=== PATIENT | male | born 1980 | race Caucasian/White ===

== ENCOUNTER 2019-02-14 16:15 | Emergency (ER) | payer MEDICAID ==
[~2019-02-14] VITALS: Ht 180.3 cm; Wt 105.0 kg
[2019-02-14 16:22] VITALS: BP 119/58; PULSE 89; RESP 18; Ht 180.3 cm; Wt 105.0 kg
--- NOTE | 2019-02-14 16:55 | ERD ---
ER Documentation Chief Complaint Chief Complaint L lower leg swelling/cellulitis X 5 months, worse recently HPI Patient 38-year-old male presenting with swelling and discomfort to his right leg. Patient states the symptoms started about 5 months ago and recently got worse over the last week. Patient is an IV drug user who uses daily. Patient denies any fever chills or body ache. Patient denies any past medical history and is not taking any prescription medication. ROS All systems reviewed and are negative except as per history of present illness. Medications Home Meds Active Scripts Sulfamethoxazole/Trimethoprim* (Bactrim Ds* Tablet) 1 Each Tablet, 1 TAB PO BID, #14 TAB Prov:ADRIANA MAC PA-C 02/14/19 Allergies Allergies: Coded Allergies: No Known Allergy (Unverified , 02/14/19) PMhx/Soc Medical and Surgical Hx: pt denies Medical Hx, pt denies Surgical Hx FmHx Family History: diabetes; No coronary disease, No other Physical Exam Vitals Vital Signs Date Temp Pulse Resp B/P (MAP) Pulse Ox O2 O2 Flow FiO2 Time Delivery Rate 02/14/19 96.6 89 18 119/58 100 16:22 (78) Physical Exam GENERAL: The patient is well-appearing, well-nourished, in no acute distress EXTREMITIES: Patient has swelling to left lower leg, patient has good pulse motor sensation in the extremity. Patient has multiple lesions on bilateral arms and legs secondary to IV drug use. Patient has good pulse motor and sensation in both lower and upper extremities There is no peripheral clubbing, cyanosis or edema. . Full range of motion. Grossly neurovascularly intact. SKIN: There is no apparent rash or petechiae. HEMATOLOGIC AND LYMPHATIC: There is no evidence of excessive bruising or lymphadenopathy. No gross cervical, axillary, or inguinal lymphadenopathy. Results 24 hrs Current Medications Medications Dose Sig/Eloina Start Time Status Last (Trade) Ordered Route PRN Stop Time Admin Dose Reason Admin 1 tab ONCE ONCE 02/14/19 DC 02/14/19 Trimethoprim/ PO 17:00 16:54 02/14/19 17:01 Sulfamethoxaz ole (Bactrim (Ds)) Ondansetron 2 mg ONCE STAT 02/14/19 Cancel HCl (Zofran IV 18:26 Inj) 02/14/19 18:27 Procedures/MDM ED course: Physical exam Bactrim DS patient education The patient was stable throughout the ED course. The patient and/or family informed of laboratory and diagnostic imaging results throughout the ED course. Medications given in ER: Bactrim DS Patient tolerated medication well with no adverse reactions. Patient reported improvement in pain. Medical decision makin-year-old male presenting with left leg swelling x5 months. Patient is a chronic IV drug user. Patient states that his leg has been getting worse over the past week and denies body ache fever chills. Patient has good pulse motor sensation in the extremity. Neurovascular examination was unremarkable. At this time I have low suspicion for sepsis, compartment syndrome, systemic infection, osteomyelitis, or fracture, patient was given dose of Bactrim in the ER. Patient was advised that he needs to follow-up with his primary care provider or community clinic within 1 to 2 days regarding this visit. Patient is in agreement to the treatment plan and has no further questions upon di scharge. Prescription for home: Discharge: At this time, patient is stable for discharge and outpatient management. I have instructed the patient to follow-up with his\her primary care physician in 1 to 2 days. I have discussed with the patient the possibility of needing to see a specialist for further work-up and imaging studies if symptoms persist. I have instructed the patient to promptly return to the ER for any new or worsening symptoms including increased pain, fever, nausea, vomiting, weakness or LOC. The patient and\or family expressed understanding of and agreement with this plan. All questions were answered. Home care instructions were provided. Disclaimer: Inadvertent spelling and grammatical errors are likely due to EHR\dictation soft andrews use and do not reflect on the overall quality of patient care. Also, please note that the electronic time recorded on the note does not necessarily reflect the actual time of the patient encounter. Departure Diagnosis: Primary Impression: Cellulitis Site of cellulitis: extremity Site of cellulitis of extremity: lower extremity Laterality: left Qualified Codes: L03.116 - Cellulitis of left lower limb Condition: Stable Patient Instructions: Cellulitis Referrals: [facility] ADRIANA MAC PA-C February 14, 2019 16:54
[2019-02-14] MEDS ORDERED: TRIMETHOPRIM/SULFAMETHOX (DS) TAB PO ONE (17:00)
[2019-02-14] MEDS ORDERED: SULF1TAB31 PO (17:03)
[2019-02-14] MEDS ORDERED: ONDANSETRON 4 MG INJ IV STA (18:26)
== END 2019-02-14 17:15 | disposition home or self-care (01) ==
LOC: FTE 16:15
DX: L03.116 Cellulitis of left lower limb (principal)
CPT/HCPCS: Z7502; Z7610; 99283

== ENCOUNTER 2019-03-03 12:45 | Emergency (ER) | payer MEDICAID ==
[~2019-03-03] VITALS: Ht 170.2 cm; Wt 105.6 kg
[~2019-03-03 12:45] MED LIST: SULF1TAB31 PO
[2019-03-03 12:47] VITALS: BP 108/51; PULSE 81; RESP 18; Ht 170.2 cm; Wt 105.6 kg
--- NOTE | 2019-03-03 14:35 | ERD ---
ER Documentation Chief Complaint Chief Complaint R LEG RED, WARM & SWELLING > 6 MTHS HPI The patient is a 38-year-old male, presenting to the ER because of chronic right lower extremity pain and redness for more than 6 months, was in the ER about 2 weeks ago and treated with Bactrim DS. He came back because he did not feel much better. He denies fever, chills, neck pain, chest pain, dyspnea, abdominal pain, vomiting, dysuria, diarrhea. He smokes denies drinking, denies illicit drug Past medical history/surgical history: None ROS All systems reviewed and are negative except as per history of present illness. Medications Home Meds Active Scripts Clindamycin Hcl* (Clindamycin Hcl*) 300 Mg Capsule, 300 MG PO QID for 10 Days, CAP Prov:ALFREDA MUÑIZ MD 03/03/19 Discontinued Scripts Sulfamethoxazole/Trimethoprim* (Bactrim Ds* Tablet) 1 Each Tablet, 1 TAB PO BID, #14 TAB Prov:ADRIANA MAC PA-C 02/14/19 Allergies Allergies: Coded Allergies: No Known Allergy (Unverified , 03/03/19) PMhx/Soc Hx Alcohol Use: Yes Hx Substance Use: Yes Hx Tobacco Use: Yes Physical Exam Vitals Vital Signs Date Temp Pulse Resp B/P (MAP) Pulse Ox O2 O2 Flow FiO2 Time Delivery Rate 03/03/19 97.7 81 18 108/51 98 12:47 (70) Physical Exam Const: No acute distress. Head: Atraumatic. Eyes: Normal Conjunctiva. ENT: Normal External Ears, Nose and Mouth. Neck: Full range of motion. No meningismus. Resp: Clear to auscultation bilaterally. Cardio: Regular rate and rhythm. Abd: Soft, non distended, normal bowel sounds, non tender. Skin: No petechiae or rashes. Back: No midline or flank tenderness. Ext: Right lower extremity is with chronic erythema and edema, minimal calf tenderness Neur: Awake and alert. No focal deficit Psych: Normal Mood and Affect. Results 24 hrs Current Medications Medications Dose Sig/Eloina Start Time Status Last (Trade) Ordered Route PRN Stop Time Admin Dose Reason Admin Clindamycin 300 mg ONCE ONCE 03/03/19 DC HCl PO 16:00 (Cleocin) 03/03/19 16:01 Procedures/[address] [place] [address] Radiology Main Line: [phone] DIAGNOSTIC IMAGING REPORT Patient: LUDY SORIANO : 1980 Age: 38 Sex: M MR #: [id number] DOS: 03/03/19 1455 Ordering MD: ALFREDA MUÑIZ MD Location: E/R Room/Bed: PROCEDURE: US venous. CLINICAL INDICATION: Right lower extremity pain and swelling. TECHNIQUE: Dhillon scale and duplex Doppler sonographic evaluation of the right lower extremity veins was performed with augmentation and compression techniques. COMPARISON: No prior studies are available for comparison. FINDINGS: The right common femoral, femoral, and popliteal veins are patent with normal vascular flow. There is normal compressibility and augmentation. The right posterior tibial vein is patent. The right peroneal vein was not visualized due to soft tissue swelling. IMPRESSION: 1. No evidence of deep venous thrombosis in the right lower extremity. RPTAT:HAJM Physician Mukesh Date Time Electronically viewed and signed by Physician Mukesh on 03/03/2019 15:25 RM/ CC: ALFREDA MUÑIZ MD [id number] MEDICAL MAKING DECISION: The patient is a 38-year-old male, presenting with chronic cellulitis of the right lower extremity, treated with clindamycin 3 mg p.o., is stable for outpatient follow-up The differential diagnoses considered include but are not limited to cellulitis, abscess, lymphedema, DVT Departure Diagnosis: Primary Impression: Cellulitis Condition: Good Comments He was discharged with clindamycin I discussed the findings with the patient. I advised the patient to follow-up with the primary physician and amputation prevention center in about 2-3 days, sooner if needed and return if any concern. Disclaimer: Inadvertent spelling and grammatical errors are likely due to EHR/dictation software use and do not reflect on the overall quality of patient care. Also, please note that the electronic time recorded on this note does not necessarily reflect the actual time of the patient encounter. ALFREDA MUÑIZ MD Mar 03, 2019 14:35
[2019-03-03] MEDS ORDERED: CLIN300C10 PO (15:53)
[2019-03-03] MEDS ORDERED: CLINDAMYCIN 300 MG CAP PO ONE (16:00)
== END 2019-03-03 18:25 | disposition home or self-care (01) ==
LOC: E/R 12:45
DX: L03.115 Cellulitis of right lower limb (principal); Z87.891 Personal history of nicotine dependence
CPT/HCPCS: 93971; Z7502; Z7610